=== PATIENT | female | born 1930 | race Caucasian/White ===

== ENCOUNTER 2017-10-23 23:19 | Emergency (ER) | payer OTHER ==
[~2017-10-23] VITALS: Ht 160 cm; Wt 54.9 kg
[~2017-10-23 23:19] MED LIST: B COMPLETE1 EACH PO; COMBIGAN O20 DROP/5 RIGHT EYE; LO-DOSE ASPIRIN81 M2 PO; SIMVASTATIN40 MG PO; XALATAN2.5 ML BOTH EYES
[2017-10-24 01:05] LABS: HEMATOCRIT 35.6 % (36.0-46.0); MCH 30.1 PG (29.0-34.0); MCHC 33.4 G/DL (30.0-36.0); MCV 90.1 FL (83-99); MEAN PLAT.VOLUME 9.1 uM^3 (9.5-12.4); PLATELET COUNT 207 K/uL (156-360); RBC DIS.WIDTH-CV 12.2 % (11.8-14.6); RBC DIS.WIDTH-SD 40.8 % (39-53); RED BLOOD COUNT 3.95 M/uL (3.80-5.20); WHITE BLOOD COUNT 6.6 K/uL (4.1-10.2)
[2017-10-24 01:29] LABS: CHLORIDE 106 mEq/L (99-109); SODIUM 138 mEq/L (136-147)
[2017-10-24 01:31] LABS: GLUCOSE 94 mg/dL (70-99)
[2017-10-24 01:33] LABS: ANION GAP 7 MEQ/L (2-14)
[2017-10-24 01:35] LABS: GFR ESTIMATE (CALCULATED) > 59 mL/min/
[2017-10-24 01:36] LABS: UREA NITROGEN (BUN) 16 mg/dL (9-23)
[2017-10-24 01:40] VITALS: BP 139/92
== END 2017-10-24 01:41 ==
LOC: EME → EDBD 23:19 → EME 10-24 01:41
PROVIDERS: Emergency Medicine
DX: M54.5 Low back pain (principal); E78.5 Hyperlipidemia, unspecified; Z98.61 Coronary angioplasty status; Z79.82 Long term (current) use of aspirin; Z88.8 Allergy status to other drugs, medicaments and biological substances; Z87.891 Personal history of nicotine dependence
CPT/HCPCS: 72131; 74176; 80048; 81003; 85027; 87086; 99281; 99284